=== PATIENT | male | born 1965 | race Caucasian/White ===

== ENCOUNTER 2018-04-04 00:29 | Emergency (ER) | payer SELFPAY ==
[~2018-04-04] VITALS: Ht 172.7 cm; Wt 75.0 kg
[2018-04-04 02:24] LABS: BASOPHILS % 0.3 % (0.0-2.0); EOSINOPHILS % 1.8 % (0.0-5.0); HEMATOCRIT. 33.9 % (42.0-52.0); HEMOGLOBIN. 11.2 g/dL (14.0-18.0); LYMPHOCYTES % 9.1 % (20.0-50.0); MEAN CORPUSCULAR HEMOGLOBIN 29.7 pg (28.0-32.0); MEAN CORPUSCULAR VOLUME 89.9 fL (80.0-94.0); MEAN PLATELET VOLUME 9.2 fl (7.4-10.4); MONOCYTES % 5.1 % (2.0-8.0); NEUTROPHILS % 83.7 % (40.0-76.0); PLATELET 72 x1000/uL (130-400); RED BLOOD CELL COUNT 3.77 mill/uL (4.7-6.1); RED CELL DISTRIBUTION WIDTH 18.5 % (11.6-14.6)
[2018-04-04 02:32] LABS: CHLORIDE 88 mEq/L (98-107)
[2018-04-04 02:37] LABS: ETHANOL BLOOD 168 mg/dL
[2018-04-04 04:31] LABS: INR 1.1; PARTIAL THROMBOPLASTIN TIME 24.1 sec (23.4-31.0); PROTHROMBIN TIME 11.4 sec (9.1-11.1)
[2018-04-04 05:27] VITALS: BP 109/56
== END 2018-04-04 05:40 | disposition short-term general hospital (02) ==
LOC: ER 00:29
DX: S00.11XA Contusion of right eyelid and periocular area, initial encounter (principal); I62.00 Nontraumatic subdural hemorrhage, unspecified; F10.129 Alcohol abuse with intoxication, unspecified; E11.65 Type 2 diabetes mellitus with hyperglycemia; F17.200 Nicotine dependence, unspecified, uncomplicated; F31.9 Bipolar disorder, unspecified; X58.XXXA Exposure to other specified factors, initial encounter; Y93.89 Activity, other specified; Y92.89 Other specified places as the place of occurrence of the external cause; Y99.8 Other external cause status; Y90.6 Blood alcohol level of 120-199 mg/100 ml
CPT/HCPCS: 36415; 70450; 71045; 80053; 82962; 85025; 85610; 85730; 86850; 86900; 86901; 86945; 99285; G0482; P9034; J7040